=== PATIENT | male | born 1985 | race Caucasian/White ===

== ENCOUNTER 2024-07-16 07:27 | Inpatient (IN) | payer BC, SELFPAY ==
[2024-07-16] VITALS (29 sets, daily range): BP systolic 101–141; BP diastolic 57–90; PULSE 51–126; RESP 15–110; TEMP 36–38.8; O2SAT 78–97; BMI 34.4
--- NOTE | ~2024-07-16 | XR_ITS ---
EXAMINATION: XR CHEST 1 VIEW HISTORY: Hypoxia COMPARISON: Comparison is made with the prior examination dated 07/17/2024. FINDINGS: A single AP portable view of the chest performed at 8:51 AM is submitted. There are low lung volumes. There are diffuse patchy airspace opacities throughout both lungs as seen previously. There is no pleural effusion, pneumothorax, or pulmonary vascular congestion. The heart is normal in size. The bones are intact. XR/XR chest 1V IMPRESSION: Low lung volumes. Diffuse patchy airspace opacities bilaterally which may represent pulmonary edema or diffuse pneumonia. Electronically signed by: Gavino Edwards MD 07/18/2024 11:37 AM [facility]
--- NOTE | ~2024-07-16 | XR_ITS ---
EXAMINATION: XR CHEST CLINICAL INFORMATION: aspiration pneumonia COMPARISON: Chest 07/16/2024. TECHNIQUE: Frontal view of the chest was obtained. FINDINGS: The lungs are hypoexpanded with prominent bilateral increased interstitial markings similar previous exam likely pneumonitis or edema. The heart size is normal. No evidence of pleural effusion or focal consolidation. No gross bony abnormality. XR/XR chest 1V IMPRESSION: Hypoexpanded lungs with likely bilateral interstitial pneumonitis or edema. No change from 07/16/2024 Electronically signed by: Cleveland Morse MD 07/17/2024 10:46 AM EST
--- NOTE | ~2024-07-16 | CT_ITS ---
EXAMINATION: CT HEAD WITHOUT CONTRAST CLINICAL INFORMATION: OD rule out bleed, stroke COMPARISON: None available. TECHNIQUE: Contiguous axial imaging was performed from the skull base to vertex without intravenous administration of contrast. This CT examination was performed using dose optimization techniques as appropriate, variously including the following: *Automated exposure control *Adjustment of mA and/or kV according to patient size (this includes techniques or standardized protocols for targeted exams where dose is matched to indication/reason for exam; i.e. extremities or head) *Use of iterative reconstruction technique DLP: 740 mGy-cm FINDINGS: Limited by patient's motion artifact. No acute intracranial hemorrhage, mass effect, midline shift, hydrocephalus or herniation. There is a questionable asymmetric hypodensity involving the right parietal/pre and postcentral gyri. Posterior cranial fossa contents demonstrated no acute intracranial hemorrhage or mass effect. Sellar/suprasellar region demonstrated no gross masses. Bony calvarium is intact. Skull base is intact. Old traumatic deformity, nasal bones. Mucosal thickening and secretions layering in the sphenoid sinus. Retention cysts versus polyp, anterior left nasal cavity. Tympanic cavities and mastoid cells are aerated. Pneumatized petrous apices. CT/CT head/brain wo IV con IMPRESSION: No acute intracranial hemorrhage. Questionable hypodensity right parietal/pre and postcentral gyri versus artifact. If patient's symptoms persist recommend non-IV contrast MRI brain. Acute on chronic sinus disease, sphenoid sinus and anterior left nasal cavity. Electronically signed by: Eddie Cervantes MD 07/16/2024 11:24 AM [facility]
--- NOTE | ~2024-07-16 | CT_ITS ---
EXAMINATION: CT CHEST ANGIOGRAPHY WITH IV CONTRAST INDICATION: OD, Hypoxia R/O pneumonia, PE COMPARISON: Correlation is made with an AP portable view of the chest performed earlier in the day. TECHNIQUE: Helical CT scan of the chest was performed following administration of intravenous contrast (65 mL Omnipaque 350). The contrast bolus was timed to optimally opacify the pulmonary arteries. Thin sections were obtained through the pulmonary arteries. Coronal and sagittal reformatted images were generated. 3D/MIP reconstructed images are also obtained and reviewed. This CT exam was performed with one or more of the following dose reduction techniques: automated exposure control, adjustment of the mA and/or kV according to patient size, use of iterative reconstruction technique. DLP: 1247 mGy-cm CHEST: THYROID: The thyroid gland is unremarkable. PULMONARY ARTERIES: There is a large amount respiratory motion artifact. No definite intraluminal filling defects are identified within the pulmonary arteries to suggest pulmonary emboli. LUNGS: There is dense consolidation in both lower lobes, consistent with pneumonia. Additional multifocal airspace opacities are noted in both upper lobes and in the right middle lobe, consistent with pneumonia. MEDIASTINUM: There is no mediastinal lymphadenopathy. YUSRA: There is no hilar lymphadenopathy. CARDIOVASCULATURE: The heart is normal in size. There is no pericardial effusion. The thoracic aorta is normal in caliber. DEGREE OF CORONARY CALCIFICATION: none PLEURA: There is no pleural effusion. No pneumothorax. MAIN AIRWAYS: The mainstem bronchi and proximal branches are patent. AXILLA: There is no axillary lymphadenopathy. UPPER ABDOMEN: The visualized portions of the liver and spleen are unremarkable. BONES AND SOFT TISSUES: There is mild degenerative disc disease of the spine. CT/CT angio chest PE protocol IMPRESSION: Extensive consolidation in both lungs consistent with pneumonia. Follow-up is recommended. No definite evidence of pulmonary emboli. Electronically signed by: Gavino Edwards MD 07/16/2024 12:02 PM [facility]
--- NOTE | ~2024-07-16 | XR_ITS ---
EXAMINATION: XR CHEST CLINICAL INFORMATION: low o2 COMPARISON: None TECHNIQUE: Frontal view of the chest was obtained. FINDINGS: The lungs are hypoexpanded without consolidation. The heart size is normal. There are bilateral increased interstitial markings likely pneumonitis or edema. No pleural effusion suspected. Pulmonary vascularity appears normal. No gross bony abnormality. XR/XR chest 1V IMPRESSION: Hypoexpanded lungs without consolidation. Suspect interstitial pneumonitis or edema. Electronically signed by: Cleveland Morse MD 07/16/2024 08:29 AM [facility]
--- NOTE | 2024-07-16 07:57 | ED_ITS ---
HPI - Overdose General Chief Complaint: Overdose Stated Complaint: overdose, narcan given Time Seen by Provider: 07/16/24 07:56 Source: patient Mode of arrival: EMS Limitations: no limitations History of Present Illness ED Provider: Dr. Tremaine Martinez HPI Narrative: 38-year-old male who presents emergency department for evaluation of an overdose. The patient states that he was at home, he crushed up two M 30 OxyContin and snorted them. He was then found unresponsive by his family who gave a dose of intranasal Narcan. First responders also given a 2nd dose of intranasal Narcan and the patient woke up and was responsive. Patient was then transported to the emergency department by EMS. Vital signs in the emergency department revealed an elevated heart rate of 109, elevated respiratory rate of 22. Initial temperature orally was 97.5 and rectally was 96.8 consistent with hypothermia. Patient's O2 saturation was 83% on room air and on a non- rebreather his O2 saturation went up 88%. Patient complains of feeling very cold but otherwise has no complaints. The patient's is a nurse. She states that her morning alarm went off and when she woke up she found that her was not breathing well, had a dusky appearance to his skin and may have vomited. She gave him 1 dose of intranasal Narcan with some response and she states that the patient became more responsive after receiving Narcan from the 1st responders. His was not aware of the patient's substance use and they have intranasal Narcan at home because the works for [employer] and he carries intranasal Narcan in the event that a customer become unresponsive. Related Data Home Medications ?Medication ?Instructions ?Recorded ?Confirmed clonazepam 1 mg tablet 1 mg PO BEDTIME 07/16/24 07/16/24 dextroamphetamine-amphetamine 10 1 tab PO DAILY@1200 attention 07/16/24 07/16/24 mg tablet deficit hyperactivity disorder dextroamphetamine-amphetamine ER 1 cap PO DAILY 07/16/24 07/16/24 30 mg 24hr capsule,extend release venlafaxine 225 mg tablet,extended 225 mg PO DAILY 07/16/24 07/16/24 release 24 hr Allergies Allergy/AdvReac Type Severity Reaction Status Date / Time No Known Allergies Allergy Verified 07/16/24 07:47 Review of Systems 2 Review of Systems: Yes all other systems are reviewed and are negative [facility] Social History Social History Household Members: Significant Other and Children Housing: House Do you presently have visiting nurse or other home services: No Patient Tobacco Use Status: Current someday Tobacco user Tobacco use type: Smokeless Tobacco Smoked in Last 30 Days: No e-Cigarette/Vaping Use: Currently Using Use of substances other than those prescribed or required for medical reasons: Yes Substance Use Type: Crack/Cocaine, Marijuana and Opiates Substance Use Frequency: Daily Last Used Substance: Just Prior to Admission Last Used Substance Other:: Daily Marijuana use Currently Displaying Signs/Symptoms of Drug Intoxication Withdrawal: No Any prior treatment program specific to substance use: No Have you been hit, kicked, punched, or otherwise hurt by someone within the past year? If so, by whom?: No Do you feel safe in your current relationship?: Yes Is there a partner from a previous relationship who is making you feel unsafe now?: No Are you made to feel afraid or neglected: No Advance Directives: No Advance Directives Information Provided: Yes Do you have a plan to hurt others: No Plan Recently lost weight without trying: No Eating poorly because of decreased appetite: No Nutrition Risks: No Nutritional Risk Poor oral hygiene: No service: No Physical Exam 2 Vital Signs: Vital Signs: Last Vital Signs Temp 99.9 F 07/17/24 08:00 Pulse 93 07/17/24 08:00 Resp 30 H 07/17/24 08:00 BP 126/65 07/17/24 08:00 Pulse Ox 94 07/17/24 08:00 O2 Del Method High Flow Nasal C annula 07/17/24 08:00 O2 Flow Rate 40 07/17/24 08:00 FiO2 60 07/17/24 08:00 Oxygen Flow Rate 2 07/16/24 07:38 BMI result Body Mass Index 34.4 Vital signs revealed elevated heart rate, elevated respiratory rate and hypoxia Exam: General: Awake, alert, patient was shivering, answers questions appropriately appears to be indistress Head: Normocephalic, atraumatic EENT: PERRL, Lids normal, sclera normal, conjunctiva normal, nose normal , ears normal, throat without erythema or exudates Neck: Supple, no adenopathy Lung: Diminished breath sounds at the bases with diffuse rhonchi Chest: symmetric movement, nontender Heart: regular rate and rhythm, normal S1, S2 no murmurs or rubs Abdomen: soft, non-tender, nondistended, normal bowel sounds Back: no vertebral tenderness, no CVAT Extremities: no deformities, moves all extremities symmetrically Neuro: Awake, alert, oriented, normal speech, cranial nerves intact, moves all extremities symmetrically Psych: Pleasant, cooperative Medications Administered Generic Name Dose Route Start Last Admin Trade Name Miguel PRN Reason Stop Dose Admin Acetaminophen 650 mg 07/16/24 19:37 07/16/24 20:45 Acetaminophen 325 Mg Tablet PO 650 mg Q4H PRN Administration fever or mild pain Ceftriaxone Sodium 2 gm 07/16/24 10:45 07/16/24 11:02 Ceftriaxone Sodium 2 Gm Vial IVPUSH 2 gm Q24H KELY Administration Clonazepam 1 mg 07/16/24 19:37 07/16/24 20:45 Clonazepam 1 Mg Tablet PO 1 mg BEDTIME PRN Administration Anxiety Enoxaparin Sodium 40 mg 07/16/24 09:00 07/17/24 08:18 Enoxaparin Sodium 40 Mg/0.4 Ml Syringe SUBCUT 40 mg Q24H KELY Administration Pantoprazole Sodium 40 mg 07/16/24 08:55 07/17/24 06:15 Pantoprazole Sodium 40 Mg/10 Ml Vial IVPUSH 40 mg DAILY@0630 KELY Administration Discontinued Medications Generic Name Dose Route Start Last Admin Trade Name Miguel PRN Reason Stop Dose Admin Acetaminophen 650 mg 07/16/24 10:15 07/16/24 10:21 Acetaminophen Supp 650 Mg Supp.Rect ND 07/16/24 10:16 650 mg ONCE ONE Administration Fentanyl 50 mcg 07/16/24 08:49 07/16/24 09:34 Fentanyl Citrate/Pf 100 Mcg/2 Ml Vial IVPUSH 50 mcg Q10M PRN Administration RR>15 or tremors Protocol Piperacillin Sod/Tazobactam 100 mls @ 200 mls/hr 07/16/24 07:58 07/16/24 09:03 Sod 4.5 gm/ Sodium Chloride IV 07/16/24 08:27 Infused ONCE STA Infusion Sodium Chloride 1,983 mls @ 1,983 mls/hr 07/16/24 07:58 07/16/24 10:08 Ns IV 07/16/24 08:57 Infused .Q1H STA Infusion Iohexol 100 ml 07/16/24 10:48 01/06/25 10:49 Iohexol 350 Mg/Ml 100 Ml Infus..Btl IV 07/16/24 10:49 65 ml ONCE ONE Administration Medical Decision Making Medical Decision Making [facility] Narrative: 38-year-old male who presents emergency department for evaluation of an overdose. The patient states that he was at home, he crushed up to M 30 OxyContin and snorted them. The patient's is a nurse. Patient was in bed with his , noted that the patient was dusky colored or not breathing well. She also thought that he may have aspirated. his administered intranasal Narcan that they had at home with some improvement of the patient's level consciousness. The patient became fully awake after receiving intranasal Narcan from 1st responders. Physical examination revealed that the is awake, alert, shivering, appears uncomreotable and in distress. Vital signs revealed an elevated respiratory rate, elevated heart rate and hypothermia. Lung exam revealed diffuse rhonchi. 08:49 Differential diagnosis: ?Includes but is not limited to opiate overdose, polysubstance overdose, aspiration pneumonia, flash pulmonary, opiate withdrawal, edema, anemia, electrolyte abnormalities Course: 09:00 My independent interpretation patient's laboratory evaluation as follows: WBC was normal 9800 with a normal differential. Platelet count was elevated 415,000. VBG: Low pH 7.26, elevated pCO2 of 80, elevated bicarb 36-this is consistent with a respiratory acidosis. Serum bicarb was elevated at 30. Glucose elevated 187. Lactic acid was normal at 2.0. BNP below detectable limits. troponin was detectable but not elevated at 12.4. My interpretation patient's chest x-ray is as follows: Increased interstitial markings bilaterally. Patient was treated for possible aspiration pneumonia with normal saline bolus 30 cc/kilogram IV based on his ideal body weight. The patient was obese with an elevated BMI of 34.4. Patient was also given Zosyn 4.5 g IV. The patient remains hypoxic despite being on maximum high-flow oxygen and a 100% non-rebreather mask. Patient appears to be agitated in was very tremulous and I suspect that he may be withdrawing from opiates. Patient also has a very high respiratory rate which may be impairing he was ability to ventilate. Therefore, I ordered fentanyl 50 mcg IV Q 10 minutes x2. I did discuss the patient's presentation with the covering wet machine operator, Dr. Cox requested that the patient get a CT scan of the head and CT angiogram PE protocol. Patient will be admitted to the intensive care unit for further management. The patient was treated for possible aspiration pneumonia with Zosyn 4.5 g IV. 10:14 Patient's shakiness and agitation improved after getting 2 doses of fentanyl suggesting that the patient was withdrawing from narcotics. Patient was evaluated by Dr. Cox in the emergency department The patient will be sent to CT scan for his studies then transferred to the intensive care unit for further management. Admission/Observation Consideration of admission/observation: Escalation of care including admission/observation considered Consult Healthcare Provider Management of the patient was discussed with: Development Rep (Retail Sales Associate Seasonal, Dr. Cox) Lab Data MDM Lab Attestation statement: I reviewed the patient's lab results. 07/17/24 05:39 07/17/24 05:39 Labs: Lab Results 07/16/24 07/16/24 07/16/24 Range/Units 07:50 07:55 07:58 WBC 9.8 (4.8-10.8) X10*3/uL RBC 5.38 (4.60-5.80) X10*6/uL Hgb 14.7 (14.0-18.0) g/dl Hct 45.6 (42.0-52.0) % MCV 84.8 (80.0-98.0) fL MCH 27.3 (27.0-33.0) pg MCHC 32.2 (31.0-36.0) g/dl RDW 14.8 (11.0-16.0) % Plt Count 415 H (160-400) X10*3/uL MPV 8.2 L (9.4-12.4) fL Immature Gran % (Auto) 0.5 H (0.0-0.4) % Neut % (Auto) 72.5 (45-73) % Lymph % (Auto) 24.1 (20-40) % Frederick % (Auto) 1.2 L (2-11) % Eos % (Auto) 1.5 (0-4) % Baso % (Auto) 0.2 (0-2) % Lymph # (Auto) 2.4 (1.2-4.9) X10*3/uL Frederick # (Auto) 0.1 (0.1-1.2) X10*3/uL Eos # (Auto) 0.2 (0.0-0.4) X10*3/uL Baso # (Auto) 0.0 (0.0-0.2) X10*3/uL Abs Immat Gran (auto) 0.05 H (0.00-0.03) X10*3/uL Absolute Neuts (auto) 7.1 (2.0-8.3) x10*3/uL Absolute Nucleated RBC 0.000 (0.0-0.012) X10*3/uL Nucleated RBC % (auto) 0.0 (0.0-0.2) /100WBC Hold Purple Top SEE NOTE VBG pH (7.32-7.43) VBG pCO2 mmHg VBG pO2 mmHg VBG HCO3 (22-26) mmol/L VBG O2 Saturation % VBG Base Excess mmol/L Sodium 141 (135-145) mmol/L Potassium 4.4 (3.3-5.1) mmol/L Chloride 104 (96-108) mmol/L Carbon Dioxide 30 H (22-29) mmol/L Anion Gap 11 L (12-20) BUN 15 (9-16) mg/dL Creatinine 1.34 (0.5-1.4) mg/dL Estim Creat Clear Calc 85.6 Estimated GFR > 60 Random Glucose 187 H (60-115) mg/dL Lactic Acid 2.0 (0.5-2.0) mmol/L Calcium 9.3 (8.4-10.2) mg/dL Total Bilirubin 0.2 (0.0-1.0) mg/dL AST 37 (5-37) U/L ALT 28 (0-40) U/L Alkaline Phosphatase 68 (39-117) U/L Troponin I High Sens (<3.5-35.0) ng/L B-Natriuretic Peptide < 10 (<100) pg/mL Total Protein 7.4 (6.5-8.0) g/dL Albumin 4.6 (3.5-5.0) g/dL Urine Color Urine Appearance Urine pH (5.0-9.0) Ur Specific Kegley (1.005-1.025) Urine Protein (Neg-Trace) mg/dL Urine Glucose (UA) (Negative) mg/dL Urine Ketones (Negative) mg/dL Urine Blood (Negative) Urine Nitrite (Negative) Ur Leukocyte Esterase (Negative) Urine RBC (0-2) /HPF Urine WBC (0-5) /HPF Ur Squamous Epith Cells (0-2) /HPF Urine Bacteria (None Seen) Hyaline Casts (0-2) /LPF Urine Opiates Screen (Not Detect) Ur Buprenorphine Scrn (Not Detect) ng/mL Ur Oxycodone Screen (Not Detect) ng/mL Urine Methadone Screen (Not Detect) ng/mL Urine Fentanyl Screen (Not Detect) Ur Barbiturates Screen (Not Detect) Ur Phencyclidine Scrn (Not Detect) Ur Amphetamines Screen (Not Detect) U Benzodiazepines Scrn (Not Detect) Urine Cocaine Screen (Not Detect) U Marijuana (THC) Screen (Not Detect) Ethyl Alcohol < 10 mg/dL Influenza Type A (PCR) NEGATIVE (Negative) Influenza Type B (PCR) NEGATIVE (Negative) RSV RNA Qual (PCR) NEGATIVE (Negative) SARS-CoV-2 RNA (RT-PCR) NEGATIVE (Negative) 07/16/24 07/16/24 07/16/24 Range/Units 07:59 08:13 09:02 WBC (4.8-10.8) X10*3/uL RBC (4.60-5.80) X10*6/uL Hgb (14.0-18.0) g/dl Hct (42.0-52.0) % MCV (80.0-98.0) fL MCH (27.0-33.0) pg MCHC (31.0-36.0) g/dl RDW (11.0-16.0) % Plt Count (160-400) X10*3/uL MPV (9.4-12.4) fL Immature Gran % (Auto) (0.0-0.4) % Neut % (Auto) (45-73) % Lymph % (Auto) (20-40) % Frederick % (Auto) (2-11) % Eos % (Auto) (0-4) % Baso % (Auto) (0-2) % Lymph # (Auto) (1.2-4.9) X10*3/uL Frederick # (Auto) (0.1-1.2) X10*3/uL Eos # (Auto) (0.0-0.4) X10*3/uL Baso # (Auto) (0.0-0.2) X10*3/uL Abs Immat Gran (auto) (0.00-0.03) X10*3/uL Absolute Neuts (auto) (2.0-8.3) x10*3/uL Absolute Nucleated RBC (0.0-0.012) X10*3/uL Nucleated RBC % (auto) (0.0-0.2) /100WBC Hold Purple Top VBG pH 7.26 L (7.32-7.43) VBG pCO2 80 mmHg VBG pO2 23 mmHg VBG HCO3 36 H (22-26) mmol/L VBG O2 Saturation < 30.0 % VBG Base Excess 6.2 mmol/L Sodium (135-145) mmol/L Potassium (3.3-5.1) mmol/L Chloride (96-108) mmol/L Carbon Dioxide (22-29) mmol/L Anion Gap (12-20) BUN (9-16) mg/dL Creatinine (0.5-1.4) mg/dL Estim Creat Clear Calc Estimated GFR Random Glucose (60-115) mg/dL Lactic Acid (0.5-2.0) mmol/L Calcium (8.4-10.2) mg/dL Total Bilirubin (0.0-1.0) mg/dL AST (5-37) U/L ALT (0-40) U/L Alkaline Phosphatase (39-117) U/L Troponin I High Sens 12.4 (<3.5-35.0) ng/L B-Natriuretic Peptide (<100) pg/mL Total Protein (6.5-8.0) g/dL Albumin (3.5-5.0) g/dL Urine Color Yellow Urine Appearance Clear Urine pH 5.5 (5.0-9.0) Ur Specific Kegley 1.015 (1.005-1.025) Urine Protein Negative (Neg-Trace) mg/dL Urine Glucose (UA) 250 H (Negative) mg/dL Urine Ketones Negative (Negative) mg/dL Urine Blood Moderate (2+) H (Negative) Urine Nitrite Negative (Negative) Ur Leukocyte Esterase Negative (Negative) Urine RBC 0-2 (0-2) /HPF Urine WBC 0-5 (0-5) /HPF Ur Squamous Epith Cells 0-2 (0-2) /HPF Urine Bacteria None Seen (None Seen) Hyaline Casts 0-2 (0-2) /LPF Urine Opiates Screen (Not Detect) Ur Buprenorphine Scrn (Not Detect) ng/mL Ur Oxycodone Screen (Not Detect) ng/mL Urine Methadone Screen (Not Detect) ng/mL Urine Fentanyl Screen (Not Detect) Ur Barbiturates Screen (Not Detect) Ur Phencyclidine Scrn (Not Detect) Ur Amphetamines Screen (Not Detect) U Benzodiazepines Scrn (Not Detect) Urine Cocaine Screen (Not Detect) U Marijuana (THC) Screen (Not Detect) Ethyl Alcohol mg/dL Influenza Type A (PCR) (Negative) Influenza Type B (PCR) (Negative) RSV RNA Qual (PCR) (Negative) SARS-CoV-2 RNA (RT-PCR) (Negative) 07/16/24 Range/Units 09:03 WBC (4.8-10.8) X10*3/uL RBC (4.60-5.80) X10*6/uL Hgb (14.0-18.0) g/dl Hct (42.0-52.0) % MCV (80.0-98.0) fL MCH (27.0-33.0) pg MCHC (31.0-36.0) g/dl RDW (11.0-16.0) % Plt Count (160-400) X10*3/uL MPV (9.4-12.4) fL Immature Gran % (Auto) (0.0-0.4) % Neut % (Auto) (45-73) % Lymph % (Auto) (20-40) % Frederick % (Auto) (2-11) % Eos % (Auto) (0-4) % Baso % (Auto) (0-2) % Lymph # (Auto) (1.2-4.9) X10*3/uL Frederick # (Auto) (0.1-1.2) X10*3/uL Eos # (Auto) (0.0-0.4) X10*3/uL Baso # (Auto) (0.0-0.2) X10*3/uL Abs Immat Gran (auto) (0.00-0.03) X10*3/uL Absolute Neuts (auto) (2.0-8.3) x10*3/uL Absolute Nucleated RBC (0.0-0.012) X10*3/uL Nucleated RBC % (auto) (0.0-0.2) /100WBC Hold Purple Top VBG pH (7.32-7.43) VBG pCO2 mmHg VBG pO2 mmHg VBG HCO3 (22-26) mmol/L VBG O2 Saturation % VBG Base Excess mmol/L Sodium (135-145) mmol/L Potassium (3.3-5.1) mmol/L Chloride (96-108) mmol/L Carbon Dioxide (22-29) mmol/L Anion Gap (12-20) BUN (9-16) mg/dL Creatinine (0.5-1.4) mg/dL Estim Creat Clear Calc Estimated GFR Random Glucose (60-115) mg/dL Lactic Acid (0.5-2.0) mmol/L Calcium (8.4-10.2) mg/dL Total Bilirubin (0.0-1.0) mg/dL AST (5-37) U/L ALT (0-40) U/L Alkaline Phosphatase (39-117) U/L Troponin I High Sens (<3.5-35.0) ng/L B-Natriuretic Peptide (<100) pg/mL Total Protein (6.5-8.0) g/dL Albumin (3.5-5.0) g/dL Urine Color Urine Appearance Urine pH (5.0-9.0) Ur Specific Kegley (1.005-1.025) Urine Protein (Neg-Trace) mg/dL Urine Glucose (UA) (Negative) mg/dL Urine Ketones (Negative) mg/dL Urine Blood (Negative) Urine Nitrite (Negative) Ur Leukocyte Esterase (Negative) Urine RBC (0-2) /HPF Urine WBC (0-5) /HPF Ur Squamous Epith Cells (0-2) /HPF Urine Bacteria (None Seen) Hyaline Casts (0-2) /LPF Urine Opiates Screen Not Detected (Not Detect) Ur Buprenorphine Scrn Not Detected (Not Detect) ng/mL Ur Oxycodone Screen Not Detected (Not Detect) ng/mL Urine Methadone Screen Not Detected (Not Detect) ng/mL Urine Fentanyl Screen Not Detected (Not Detect) Ur Barbiturates Screen Not Detected (Not Detect) Ur Phencyclidine Scrn Not Detected (Not Detect) Ur Amphetamines Screen POSITIVE H (Not Detect) U Benzodiazepines Scrn POSITIVE H (Not Detect) Urine Cocaine Screen POSITIVE H (Not Detect) U Marijuana (THC) Screen POSITIVE H (Not Detect) Ethyl Alcohol mg/dL Influenza Type A (PCR) (Negative) Influenza Type B (PCR) (Negative) RSV RNA Qual (PCR) (Negative) SARS-CoV-2 RNA (RT-PCR) (Negative) Independent Interpretation I performed an independent interpretation of an: EKG and Plain X-Ray Interpretation: My independent interpretation patient's 12 EKG is as follows: Sinus tachycardia with a rate of 117, no ST segment elevation, no ST segment depression, no significant T-wave abnormalities, no PACs, no PVCs. Except for the tachycardia this EKG is normal. My interpretation of the patient's chest x-ray is as follows: Increased interstitial markings bilaterally consistent with interstitial edema verses aspiration pneumonia. Radiology Impression Discussion of test interpretation with radiology: I have reviewed the radiologist's reading. Radiologist Impression: XR chest 1V IMPRESSION: Hypoexpanded lungs without consolidation. Suspect interstitial pneumonitis or edema. Electronically signed by: Cleveland Morse MD 07/16/2024 08:29 AM [facility] Dictated By: Cleveland Morse MD Independent Historian Clinical information obtained from an independent historian. History obtained from or confirmed by: Spouse Critical Care Time Critical Care Time Critical Care Time: Yes Total Critical Care Time: 80 Attestation: Critical Care: The patient was critically ill with a high probability of imminent or life threatening deterioration. I spent greater than 30 minutes of discontinuous time evaluating the patient,delivering critical care at the bedside, discussing and evaluating pertinent data with consultants. Critical care time does not include time spent performing separately billable procedures or teaching. Total time spent performing critical care was 80 minutes. Discharge Plan Discharge Clinical Impression: Opiate overdose Qualifiers: Encounter type: initial encounter Injury intent: accidental or unintentional Q ualified Code(s): T40.601A - Poisoning by unspecified narcotics, accidental (unintentional), initial encounter Aspiration pneumonia Qualifiers: Aspiration pneumonia type: due to gastric secretions Laterality: unspecified laterality Hypothermia Qualifiers: Encounter type: initial encounter Qualified Code(s): T68.XXXA - Hypothermia, initial encounter Patient Disposition: Admitted As Inpatient Interventions: Admission Worksheet (ED) Last Done: 07/16/24 10:57 Discharge Date/Time: 07/16/24 10:59
--- NOTE | 2024-07-16 08:00 | PC.NURSE ---
pt is coming in from home and was found unresponsive, give 4mg of narcan by a bystander and ems gave another 4mg on seen, pt arrived to the ED pt cant maintain his oxygen level, started with nasal cannual was 4l and was sating at 83%l, put on oxy mask at 4l not maintains at this time either, decision to put the pt on high flow instead at 50l sating at 83%, respirations range from 30-40 at this time, pt increased to 100 of oxygen and maxed on the high flow as well. pt still sating low around 88-89% maxed on high flow and a non-rebreather at the same time.
--- NOTE | 2024-07-16 08:00 | ECG_ITS ---
Test Reason : OVERDOSE Blood Pressure : / mmHG Vent. Rate : 117 BPM Atrial Rate : 117 BPM P-R Int : 130 ms QRS Dur : 090 ms QT Int : 338 ms P-R-T Axes : 039 064 039 degrees QTc Int : 471 ms Sinus tachycardia Otherwise normal ECG No previous ECGs available Referred By: Tremaine Martinez Electronically Signed By:MARA ELLIOTT
[2024-07-16 08:04] LABS: MANUAL DIFF FLAG NO
[2024-07-16 08:06] LABS: Basophils Percent Auto 0.2 % (0-2); Eosinophils Absolute Auto 0.2 X10*3/uL (0.0-0.4); Eosinophils Percent Auto 1.5 % (0-4); Hematocrit 45.6 % (42.0-52.0); Hemoglobin 14.7 g/dl (14.0-18.0); Imm Gran Abs Auto 0.05 X10*3/uL (0.00-0.03); Imm Gran Pct Auto 0.5 % (0.0-0.4); Lymphocytes Absolute Auto 2.4 X10*3/uL (1.2-4.9); Lymphocytes Percent Auto 24.1 % (20-40); Mean Corpuscular HGB Conc 32.2 g/dl (31.0-36.0); Mean Corpuscular Hemoglobin 27.3 pg (27.0-33.0); Mean Corpuscular Volume 84.8 fL (80.0-98.0); Mean Platelet Volume 8.2 fL (9.4-12.4); Monocytes Absolute Auto 0.1 X10*3/uL (0.1-1.2); Monocytes Percent Auto 1.2 % (2-11); Neutrophils Absolute Auto 7.1 x10*3/uL (2.0-8.3); Neutrophils Percent Auto 72.5 % (45-73); Platelet Count 415 X10*3/uL (160-400); Red Blood Count 5.38 X10*6/uL (4.60-5.80); Red Cell Distribution Width 14.8 % (11.0-16.0); White Blood Count 9.8 X10*3/uL (4.8-10.8)
[2024-07-16 08:08] LABS: VBG Base Excess 6.2 mmol/L; VBG HCO3 36 mmol/L (22-26); VBG O2 % Saturation < 30.0 %; VBG pCO2 80 mmHg; VBG pH 7.26 (7.32-7.43); VBG pO2 23 mmHg
[2024-07-16] MEDS: 0.9 % Sodium Chloride 1,983 ML 1983 ML IV (08:08)
[2024-07-16 08:09] LABS: Venous Blood Gas Refer to POC result
[2024-07-16] MEDS: Piperacillin Sodium/Tazobactam 4.5 GM in 0.9 % Sodium Chloride 100 ML IV (08:14)
[2024-07-16 08:22] LABS: Alanine Aminotransferase 28 U/L (0-40); Albumin Level 4.6 g/dL (3.5-5.0); Alkaline Phosphatase 68 U/L (39-117); Anion Gap 11 (12-20); Bilirubin Total 0.2 mg/dL (0.0-1.0); Blood Urea Nitrogen 15 mg/dL (9-16); Calcium 9.3 mg/dL (8.4-10.2); Carbon Dioxide 30 mmol/L (22-29); Chloride 104 mmol/L (96-108); Creatinine Clr Calc Pharmacy 85.6; Estimated Glomerular Filt Rate > 60; Ethanol < 10 mg/dL; Glucose Random 187 mg/dL (60-115); Potassium 4.4 mmol/L (3.3-5.1); Sodium 141 mmol/L (135-145); Total Protein 7.4 g/dL (6.5-8.0)
--- NOTE | 2024-07-16 08:50 | PC.NURSE ---
chaudhari cath in place after two attempts for the pt to void and unsuccessful each time and bladder scan showed 600ml
[2024-07-16] MEDS: Pantoprazole Sodium 40 MG/10 ML VIAL IVPUSH (09:05)
[2024-07-16] MEDS: Enoxaparin Sodium 40 MG/0.4 ML SYRINGE SUBCUT (09:05)
[2024-07-16] MEDS: fentaNYL citrate/PF 100 MCG/2 ML VIAL 50 MCG IVPUSH ×2 (09:06→09:34)
[2024-07-16 09:08] LABS: Influenza A PCR NEGATIVE (Negative); Influenza B PCR NEGATIVE (Negative); Resp Syncy Virus RNA Qual PCR NEGATIVE (Negative); SARS COV2 PCR INHOUSE NEGATIVE (Negative)
[2024-07-16 09:13] LABS: Troponin-I High Sensitivity 12.4 ng/L (<3.5-35.0)
--- NOTE | 2024-07-16 09:13 | PC.NURSE ---
pt is off the bare hugger current tempo is 99.5 core
[2024-07-16 09:15] LABS: Appearance Urine Clear; Color Urine Yellow; Glucose Urine UA 250 mg/dL (Negative); Leukocyte Esterase Urine Negative (Negative); Nitrite Urine Negative (Negative); PH 5.5 (5.0-9.0); Specific Gravity - Urine 1.015 (1.005-1.025); UMIC TRIGGER UACC YES; Urine Blood Moderate (2+) (Negative); Urine Ketones Negative (Negative); Urine Protein Negative (Neg-Trace)
[2024-07-16 09:22] LABS: B Type Natriuretic Peptide < 10 pg/mL (<100)
[2024-07-16 09:25] LABS: Amphetamine Screen Urine POSITIVE (Not Detect); Barbiturates, Urine Not Detected (Not Detect); Benzodiazepines Screen Urine POSITIVE (Not Detect); Buprenorphine Scr Not Detected (Not Detect); Cannabinoid Screen Urine POSITIVE (Not Detect); Cocaine Screen Urine POSITIVE (Not Detect); Fentanyl, urine Not Detected (Not Detect); Methadone Screen, Urine Not Detected (Not Detect); Opiate Screen Urine Not Detected (Not Detect); Oxycodone Screen Urine Not Detected (Not Detect); Phencyclidine Screen Urine Not Detected (Not Detect)
[2024-07-16 09:30] LABS: Bacteria Urine None Seen (None Seen); Hyaline Casts Urine 0-2 /LPF (0-2); RBC Urine 0-2 /HPF (0-2); Squamous Epithelial Cell Urine 0-2 /HPF (0-2); WBC Urine 0-5 /HPF (0-5)
--- NOTE | 2024-07-16 09:40 | PC.NURSE ---
currently about 1200cc in the chaudhari cath and draining well
--- NOTE | 2024-07-16 09:47 | PC.NURSE ---
called hanna for report, awaiting a call back at this time
[2024-07-16 09:57] LABS: INTERNATIONAL NORM RATIO 0.9 (0.9-1.1)
[2024-07-16 10:00] LABS: Partial Thromboplastin Time 29.2 SEC (26.0-36.8)
[2024-07-16 10:09] LABS: Phosphorus 3.3 mg/dL (2.7-4.5)
[2024-07-16] MEDS: Acetaminophen Supp 650 MG SUPP.RECT PR (10:21)
[2024-07-16 10:33] LABS: TSH reflex Free T4 0.37 uIU/mL (0.32-4.0)
--- NOTE | 2024-07-16 10:41 | PHA.MEDREC ---
Addendum entered by Blaire Partida RPh 07/16/24 10:51: reviewed by pharmacist Original Note: Pharmacy Consult ? Medication Reconciliation Pharmacy has completed the medication reconciliation. Spoke to patient spouse at bedside to confirm med list. Spouse was able to name all of patients medication. Everything the spouse named matched claims.
[2024-07-16 10:42] LABS: Aspartate Amino Transferase 37 U/L (5-37)
[2024-07-16] MEDS: iohexoL 350 MG/ML 100 ML INFUS..BTL IV (10:49)
--- NOTE | 2024-07-16 10:59 | PM.CCHP ---
History of Present Illness Date of Service: 07/16/24 Chief Complaint: Unresponsive 38-year-old male with no significant past medical history, his home medications include only Xanax with remote history of drug abuse was apparently normal last night when he went to bed. This morning his noted that he has struggled breathing, when she turned on the light he was purple in color and severely dyspneic. She gave him a dose of intranasal Narcan and called EMS. He was brought into the ED, received another dose of Narcan after which he became very restless but a little bit more awake, later the ED physician thought he was withdrawing from opioids so received a dose of fentanyl following which he is resting comfortably. He has significant shortness of breath for which he is on 100% oxygen on high-flow along with non-rebreather so MICU was consulted for admission Review of Systems Review of Systems: Unable to obtain due to poor mental status PMFSH Social History Social History Smoked in Last 30 Days: No Use of substances other than those prescribed or required for medical reasons: Yes Substance Use Type: Opiates Advance Directives: No Advance Directives Information Provided: Yes Meds Allergies Allergy/AdvReac Type Severity Reaction Status Date / Time No Known Allergies Allergy Verified 07/16/24 07:47 Active Medications: Current Medications Ceftriaxone Sodium (Ceftriaxone Sodium 2 Gm Vial) 2 gm IVPUSH Q24H [facility] Enoxaparin Sodium (Enoxaparin Sodium 40 Mg/0.4 Ml Syringe) 40 mg SUBCUT Q24H [facility] Last Admin: 07/16/24 09:05 Dose: 40 mg Pantoprazole Sodium (Pantoprazole Sodium 40 Mg/10 Ml Vial) 40 mg IVPUSH DAILY@0630 [facility] Last Admin: 07/16/24 09:05 Dose: 40 mg Home Medications ?Medication ?Instructions ?Recorded ?Confirmed ?Last Taken ?Type clonazepam 1 mg tablet 1 mg PO BEDTIME 07/16/24 07/16/24 07/14/24 History dextroamphetamine-amphetamine 10 1 tab PO DAILY@1200 attention 07/16/24 07/16/24 07/14/24 History mg tablet deficit hyperactivity disorder dextroamphetamine-amphetamine ER 1 cap PO DAILY 07/16/24 07/16/24 07/14/24 History 30 mg 24hr capsule,extend release venlafaxine 225 mg tablet,extended 225 mg PO DAILY 0107/16/24 07/15/24 History release 24 hr Physical Exam Vital Signs: Vital Signs: Last Vital Signs Temp 101.8 F H 07/16/24 10:10 Pulse 126 H 07/16/24 10:10 Resp 38 H 07/16/24 10:10 BP 126/70 07/16/24 10:10 Pulse Ox 90 L 07/16/24 10:10 O2 Del Method High Flow Nasal C annula, Non-Rebrea ther Mask 07/16/24 10:10 O2 Flow Rate 60 07/16/24 10:10 Oxygen Flow Rate 2 07/16/24 07:38 BMI result Body Mass Index 34.4 General: Young white male lying in the bed unresponsive, dyspneic Nutritional Appearance: well nourished and overweight Eyes: appearance normal, both eyes and all related structures; Alignment and Position: alignment normal and position normal Neck: No lymphadenopathy, no thyromegaly Resp: bilateral air entry equal, crackles heard bilaterally Cardio: Regular rate, regular rhythm; Heart sounds: S1 normal heart sound present and S2 normal heart sound present GI: soft, nontender, no guarding, no hepatosplenomegaly : bladder normal to inspection, bladder normal to palpation, no renal angle tenderness Skin: no rashes or lesions noted and elasticity normal Neuro: Drowsy, not following commands but moves all extremities Results Labs 07/16/24 07:50 07/16/24 07:50 Labs: Laboratory Results - last 24 hr 07/16/24 07/16/24 07/16/24 07:50 07:55 07:58 MCV 84.8 MCH 27.3 MCHC 32.2 RDW 14.8 Plt Count 415 H MPV 8.2 L Immature Gran % (Auto) 0.5 H Neut % (Auto) 72.5 Lymph % (Auto) 24.1 [place] % (Auto) 1.2 L Eos % (Auto) 1.5 Baso % (Auto) 0.2 Lymph # (Auto) 2.4 [place] # (Auto) 0.1 Eos # (Auto) 0.2 Baso # (Auto) 0.0 Abs Immat Gran (auto) 0.05 H Absolute Neuts (auto) 7.1 Absolute Nucleated RBC 0.000 Nucleated RBC % (auto) 0.0 Hold Purple Top SEE NOTE PT INR APTT VBG pH VBG pCO2 VBG pO2 VBG HCO3 VBG O2 Saturation VBG Base Excess Anion Gap 11 L Estim Creat Clear Calc 85.6 Estimated GFR > 60 Random Glucose 187 H Lactic Acid 2.0 Calcium 9.3 Phosphorus Total Bilirubin 0.2 AST 37 ALT 28 Alkaline Phosphatase 68 Troponin I High Sens B-Natriuretic Peptide < 10 Total Protein 7.4 Albumin 4.6 TSH Urine Color Urine Appearance Urine pH Ur Specific [place] Urine Protein Urine Glucose (UA) Urine Ketones Urine Blood Urine Nitrite Ur Leukocyte Esterase Urine RBC Urine WBC Ur Squamous Epith Cells Urine Bacteria Hyaline Casts Urine Opiates Screen Ur Buprenorphine Scrn Ur Oxycodone Screen Urine Methadone Screen Urine Fentanyl Screen Ur Barbiturates Screen Ur Phencyclidine Scrn Ur Amphetamines Screen U Benzodiazepines Scrn Urine Cocaine Screen U Marijuana (THC) Screen Ethyl Alcohol < 10 Influenza Type A (PCR) NEGATIVE Influenza Type B (PCR) NEGATIVE RSV RNA Qual (PCR) NEGATIVE SARS-CoV-2 RNA (RT-PCR) NEGATIVE 07/16/24 07/16/24 07/16/24 07:59 08:13 09:02 MCV MCH MCHC RDW Plt Count MPV Immature Gran % (Auto) Neut % (Auto) Lymph % (Auto) [place] % (Auto) Eos % (Auto) Baso % (Auto) Lymph # (Auto) [place] # (Auto) Eos # (Auto) Baso # (Auto) Abs Immat Gran (auto) Absolute Neuts (auto) Absolute Nucleated RBC Nucleated RBC % (auto) Hold Purple Top PT INR APTT VBG pH 7.26 L VBG pCO2 80 VBG pO2 23 VBG HCO3 36 H VBG O2 Saturation < 30.0 VBG Base Excess 6.2 Anion Gap Estim Creat Clear Calc Estimated GFR Random Glucose Lactic Acid Calcium Phosphorus Total Bilirubin AST ALT Alkaline Phosphatase Troponin I High Sens 12.4 B-Natriuretic Peptide Total Protein Albumin TSH Urine Color Yellow Urine Appearance Clear Urine pH 5.5 Ur Specific [place] 1.015 Urine Protein Negative Urine Glucose (UA) 250 H Urine Ketones Negative Urine Blood Moderate (2+) H Urine Nitrite Negative Ur Leukocyte Esterase Negative Urine RBC 0-2 Urine WBC 0-5 Ur Squamous Epith Cells 0-2 Urine Bacteria None Seen Hyaline Casts 0-2 Urine Opiates Screen Ur Buprenorphine Scrn Ur Oxycodone Screen Urine Methadone Screen Urine Fentanyl Screen Ur Barbiturates Screen Ur Phencyclidine Scrn Ur Amphetamines Screen U Benzodiazepines Scrn Urine Cocaine Screen U Marijuana (THC) Screen Ethyl Alcohol Influenza Type A (PCR) Influenza Type B (PCR) RSV RNA Qual (PCR) SARS-CoV-2 RNA (RT-PCR) 07/16/24 07/16/24 07/16/24 09:03 09:44 09:45 MCV MCH MCHC RDW Plt Count MPV Immature Gran % (Auto) Neut % (Auto) Lymph % (Auto) [place] % (Auto) Eos % (Auto) Baso % (Auto) Lymph # (Auto) [place] # (Auto) Eos # (Auto) Baso # (Auto) Abs Immat Gran (auto) Absolute Neuts (auto) Absolute Nucleated RBC Nucleated RBC % (auto) Hold Purple Top PT 11.0 INR 0.9 APTT 29.2 VBG pH VBG pCO2 VBG pO2 VBG HCO3 VBG O2 Saturation VBG Base Excess Anion Gap Estim Creat Clear Calc Estimated GFR Random Glucose Lactic Acid Calcium Phosphorus 3.3 Total Bilirubin AST ALT Alkaline Phosphatase Troponin I High Sens B-Natriuretic Peptide Total Protein Albumin TSH 0.37 Urine Color Urine Appearance Urine pH Ur Specific [place] Urine Protein Urine Glucose (UA) Urine Ketones Urine Blood Urine Nitrite Ur Leukocyte Esterase Urine RBC Urine WBC Ur Squamous Epith Cells Urine Bacteria Hyaline Casts Urine Opiates Screen Not Detected Ur Buprenorphine Scrn Not Detected Ur Oxycodone Screen Not Detected Urine Methadone Screen Not Detected Urine Fentanyl Screen Not Detected Ur Barbiturates Screen Not Detected Ur Phencyclidine Scrn Not Detected Ur Amphetamines Screen POSITIVE H U Benzodiazepines Scrn POSITIVE H Urine Cocaine Screen POSITIVE H U Marijuana (THC) Screen POSITIVE H Ethyl Alcohol Influenza Type A (PCR) Influenza Type B (PCR) RSV RNA Qual (PCR) SARS-CoV-2 RNA (RT-PCR) Imaging Radiologist's Impressions: Impressions Chest X-Ray 07/16/24 07:50 IMPRESSION: Hypoexpanded lungs without consolidation. Suspect interstitial pneumonitis or edema. Electronically signed by: Cleveland Morse MD 07/16/2024 08:29 AM [facility] Assessment and Plan (1) Aspiration pneumonia: Qualifiers: Aspiration pneumonia type: due to gastric secretions Laterality: unspecified laterality Status: Acute (2) Acute encephalopathy: Status: Acute (3) Acute hypoxemic respiratory failure: Status: Acute (4) Opiate overdose: Qualifiers: Encounter type: initial encounter Injury intent: accidental or unintentional Qualified Code(s): T40.601A - Poisoning by unspecified narcotics, accidental (unintentional), initial encounter Status: Acute Plan Acute encephalopathy possibly due to toxic encephalopathy from drug overdose UDS positive for meth amphetamines, benzos, cocaine and marijuana CT of the head done, reports pending Close neurological status monitoring in the ICU every hour Acute hypoxemic respiratory failure due to aspiration pneumonia Currently on 100% oxygen on high-flow and non-rebreather CTA of the chest done to rule out any other etiologies On ceftriaxone for aspiration pneumonia GI: We will keep him NPO due to high-risk for aspiration Prophylaxis: Lovenox, pantoprazole Total time managing care of this patient today: 40 minutes.
[2024-07-16] MEDS: cefTRIAXone sodium 2 GM VIAL IVPUSH (11:02)
[2024-07-16 11:50] LABS: ABG Base Excess 0.3 mmol/L; ABG HCO3 25 mmol/L (22-26); ABG pCO2 40 mmHg (32-45); ABG pH 7.39 (7.35-7.45); ABG pO2 92 mmHg (83-108)
--- NOTE | 2024-07-16 14:16 | MHC.CM.PN ---
CM assessment limited by pt's lethargy: some information obtained from pt's spouse and EMR. Pt resides w/spouse/family and has no DME or services. He will need CARE team assessment when medically stable for polysubstance use. Spouse can transport. CM to reassess and follow for finalization of d/c plan needs. PCP Dr. Hinojosa
[2024-07-16] MEDS: clonazePAM 1 MG TABLET PO (20:45)
[2024-07-16] MEDS: Acetaminophen 325 MG TABLET 650 MG PO (20:45)
[2024-07-17] VITALS (20 sets, daily range): BP systolic 106–139; BP diastolic 58–80; PULSE 68–104; RESP 18–38; TEMP 36.3–38; O2SAT 92–98
[2024-07-17] MEDS: Pantoprazole Sodium 40 MG/10 ML VIAL IVPUSH (06:15)
[2024-07-17 06:19] LABS: Hematocrit 43.5 % (42.0-52.0); Hemoglobin 14.2 g/dl (14.0-18.0); Mean Corpuscular HGB Conc 32.6 g/dl (31.0-36.0); Mean Corpuscular Volume 82.9 fL (80.0-98.0); Mean Platelet Volume 8.7 fL (9.4-12.4); Platelet Count 341 X10*3/uL (160-400); Red Blood Count 5.25 X10*6/uL (4.60-5.80); Red Cell Distribution Width 15.1 % (11.0-16.0); White Blood Count 11.8 X10*3/uL (4.8-10.8)
[2024-07-17 06:25] LABS: Magnesium 1.6 mg/dL (1.6-2.6)
[2024-07-17 06:26] LABS: Alanine Aminotransferase 22 U/L (0-40); Albumin Level 3.8 g/dL (3.5-5.0); Alkaline Phosphatase 41 U/L (39-117); Anion Gap 13 (12-20); Aspartate Amino Transferase 28 U/L (5-37); Bilirubin Total 0.6 mg/dL (0.0-1.0); Blood Urea Nitrogen 10 mg/dL (9-16); Calcium 8.6 mg/dL (8.4-10.2); Carbon Dioxide 23 mmol/L (22-29); Chloride 108 mmol/L (96-108); Estimated Glomerular Filt Rate > 60; Glucose Random 100 mg/dL (60-115); Potassium 3.6 mmol/L (3.3-5.1); Sodium 140 mmol/L (135-145); Total Protein 6.5 g/dL (6.5-8.0)
[2024-07-17 07:03] LABS: Band Neutrophils Percent 26 % (3-5); Lymphocytes Percent Manual 17 % (20-40); Metamyelocytes Absolute 0.2 X10*3/uL; Metamyelocytes Percent 2 %; Myelocytes Absolute 0.1 X10*/uL; Myelocytes Percent 1 %; Neutrophils Absolute Manual 9.4 X10*3/uL (2.0-8.3); Neutrophils Percent Manual 54 % (45-73)
[2024-07-17 07:04] LABS: Dohle Bodies PRESENT
[2024-07-17 07:05] LABS: Toxic Vacuolation PRESENT
[2024-07-17 07:06] LABS: Platelet Estimate NORMAL (NORMAL); Platelet Morphology Comment NORMAL; RBC Morphology NORMAL
[2024-07-17] MEDS: Enoxaparin Sodium 40 MG/0.4 ML SYRINGE SUBCUT (08:18)
--- NOTE | 2024-07-17 08:51 | P.PNCC_ITS ---
Subjective Subjective Date of Service: 07/17/24 Critical Care Time (minutes): 35 Comment: No new events overnight, improving oxygen requirements Mental status slowly improving Physical Exam 2 Vital Signs: Vital Signs: Last Vital Signs Temp 99.9 F 07/17/24 08:00 Pulse 93 07/17/24 08:00 Resp 30 H 07/17/24 08:00 BP 126/65 07/17/24 08:00 Pulse Ox 94 07/17/24 08:00 O2 Del Method High Flow Nasal C annula 07/17/24 08:00 O2 Flow Rate 40 07/17/24 08:00 FiO2 60 07/17/24 08:00 Oxygen Flow Rate 2 07/16/24 07:38 BMI result Body Mass Index 34.4 General: Not in acute distress, drowsy but arousable Nutritional Appearance: well nourished and overweight Eyes: appearance normal, both eyes and all related structures; Alignment and Position: alignment normal and position normal Neck: No lymphadenopathy, no thyromegaly Resp: bilateral air entry equal, occasional added sounds present Cardio: Regular rate, regular rhythm; Heart sounds: S1 normal heart sound present and S2 normal heart sound present GI: soft, nontender, no guarding, no hepatosplenomegaly : bladder normal to inspection, bladder normal to palpation, no renal angle tenderness Skin: no rashes or lesions noted and elasticity normal Neuro: No focal deficits, moves all extremities Objective Data Labs 07/17/24 05:39 07/17/24 05:39 Labs: Laboratory Results - last 24 hr 07/16/24 07/16/24 07/16/24 07:50 07:58 08:13 WBC RBC Hgb Hct MCV MCH MCHC RDW Plt Count MPV Immature Gran % (Auto) Neut % (Auto) Lymph % (Auto) [place] % (Auto) Eos % (Auto) Baso % (Auto) Lymph # (Auto) [place] # (Auto) Eos # (Auto) Baso # (Auto) Abs Immat Gran (auto) Absolute Neuts (auto) Absolute Nucleated RBC Nucleated RBC % (auto) Neutrophils % (Manual) Band Neutrophils % Lymphocytes % (Manual) Metamyelocytes % Myelocytes % Abs Neuts (Manual) Lymphocytes # (Manual) Metamyelocytes # Myelocytes # Toxic Vacuolation Dohle Bodies Platelet Estimate Plt Morphology Comment RBC Morphology PT INR APTT O2 Saturation ABG pH at Pt Temp ABG pCO2 at Pt Temp ABG pO2 at Pt Temp ABG HCO3 ABG Base Excess (Actual) Sodium Potassium Chloride Carbon Dioxide Anion Gap BUN Creatinine Estim Creat Clear Calc Estimated GFR Random Glucose Calcium Phosphorus Magnesium Total Bilirubin AST 37 ALT Alkaline Phosphatase Troponin I High Sens 12.4 B-Natriuretic Peptide < 10 Total Protein Albumin TSH Urine Color Urine Appearance Urine pH Ur Specific [place] Urine Protein Urine Glucose (UA) Urine Ketones Urine Blood Urine Nitrite Ur Leukocyte Esterase Urine RBC Urine WBC Ur Squamous Epith Cells Urine Bacteria Hyaline Casts Urine Opiates Screen Ur Buprenorphine Scrn Ur Oxycodone Screen Urine Methadone Screen Urine Fentanyl Screen Ur Barbiturates Screen Ur Phencyclidine Scrn Ur Amphetamines Screen U Benzodiazepines Scrn Urine Cocaine Screen U Marijuana (THC) Screen Influenza Type A (PCR) NEGATIVE Influenza Type B (PCR) NEGATIVE RSV RNA Qual (PCR) NEGATIVE SARS-CoV-2 RNA (RT-PCR) NEGATIVE 07/16/24 07/16/24 07/16/24 09:02 09:03 09:44 WBC RBC Hgb Hct MCV MCH MCHC RDW Plt Count MPV Immature Gran % (Auto) Neut % (Auto) Lymph % (Auto) [place] % (Auto) Eos % (Auto) Baso % (Auto) Lymph # (Auto) [place] # (Auto) Eos # (Auto) Baso # (Auto) Abs Immat Gran (auto) Absolute Neuts (auto) Absolute Nucleated RBC Nucleated RBC % (auto) Neutrophils % (Manual) Band Neutrophils % Lymphocytes % (Manual) Metamyelocytes % Myelocytes % Abs Neuts (Manual) Lymphocytes # (Manual) Metamyelocytes # Myelocytes # Toxic Vacuolation Dohle Bodies Platelet Estimate Plt Morphology Comment RBC Morphology PT INR APTT O2 Saturation ABG pH at Pt Temp ABG pCO2 at Pt Temp ABG pO2 at Pt Temp ABG HCO3 ABG Base Excess (Actual) Sodium Potassium Chloride Carbon Dioxide Anion Gap BUN Creatinine Estim Creat Clear Calc Estimated GFR Random Glucose Calcium Phosphorus Magnesium Total Bilirubin AST ALT Alkaline Phosphatase Troponin I High Sens B-Natriuretic Peptide Total Protein Albumin TSH 0.37 Urine Color Yellow Urine Appearance Clear Urine pH 5.5 Ur Specific [place] 1.015 Urine Protein Negative Urine Glucose (UA) 250 H Urine Ketones Negative Urine Blood Moderate (2+) H Urine Nitrite Negative Ur Leukocyte Esterase Negative Urine RBC 0-2 Urine WBC 0-5 Ur Squamous Epith Cells 0-2 Urine Bacteria None Seen Hyaline Casts 0-2 Urine Opiates Screen Not Detected Ur Buprenorphine Scrn Not Detected Ur Oxycodone Screen Not Detected Urine Methadone Screen Not Detected Urine Fentanyl Screen Not Detected Ur Barbiturates Screen Not Detected Ur Phencyclidine Scrn Not Detected Ur Amphetamines Screen POSITIVE H U Benzodiazepines Scrn POSITIVE H Urine Cocaine Screen POSITIVE H U Marijuana (THC) Screen POSITIVE H Influenza Type A (PCR) Influenza Type B (PCR) RSV RNA Qual (PCR) SARS-CoV-2 RNA (RT-PCR) 07/16/24 07/16/24 07/17/24 09:45 11:39 05:39 WBC 11.8 H RBC 5.25 Hgb 14.2 Hct 43.5 MCV 82.9 MCH 27.0 MCHC 32.6 RDW 15.1 Plt Count 341 MPV 8.7 L Immature Gran % (Auto) Cancelled Neut % (Auto) Cancelled Lymph % (Auto) Cancelled [place] % (Auto) Cancelled Eos % (Auto) Cancelled Baso % (Auto) Cancelled Lymph # (Auto) Cancelled [place] # (Auto) Cancelled Eos # (Auto) Cancelled Baso # (Auto) Cancelled Abs Immat Gran (auto) Cancelled Absolute Neuts (auto) Cancelled Absolute Nucleated RBC 0.000 Nucleated RBC % (auto) 0.0 Neutrophils % (Manual) 54 Band Neutrophils % 26 H Lymphocytes % (Manual) 17 L Metamyelocytes % 2 Myelocytes % 1 Abs Neuts (Manual) 9.4 H Lymphocytes # (Manual) 2.0 Metamyelocytes # 0.2 Myelocytes # 0.1 Toxic Vacuolation PRESENT Dohle Bodies PRESENT Platelet Estimate NORMAL Plt Morphology Comment NORMAL RBC Morphology NORMAL PT 11.0 INR 0.9 APTT 29.2 O2 Saturation 99.0 ABG pH at Pt Temp 7.39 ABG pCO2 at Pt Temp 40 ABG pO2 at Pt Temp 92 ABG HCO3 25 ABG Base Excess (Actual) 0.3 Sodium 140 Potassium 3.6 Chloride 108 Carbon Dioxide 23 Anion Gap 13 BUN 10 Creatinine 0.89 Estim Creat Clear Calc 129.0 Estimated GFR > 60 Random Glucose 100 Calcium 8.6 D Phosphorus 3.3 Magnesium 1.6 Total Bilirubin 0.6 AST 28 ALT 22 Alkaline Phosphatase 41 Troponin I High Sens B-Natriuretic Peptide Total Protein 6.5 Albumin 3.8 TSH Urine Color Urine Appearance Urine pH Ur Specific [place] Urine Protein Urine Glucose (UA) Urine Ketones Urine Blood Urine Nitrite Ur Leukocyte Esterase Urine RBC Urine WBC Ur Squamous Epith Cells Urine Bacteria Hyaline Casts Urine Opiates Screen Ur Buprenorphine Scrn Ur Oxycodone Screen Urine Methadone Screen Urine Fentanyl Screen Ur Barbiturates Screen Ur Phencyclidine Scrn Ur Amphetamines Screen U Benzodiazepines Scrn Urine Cocaine Screen U Marijuana (THC) Screen Influenza Type A (PCR) Influenza Type B (PCR) RSV RNA Qual (PCR) SARS-CoV-2 RNA (RT-PCR) Progress Note: A&P Assessment and plan (1) Acute encephalopathy: Status: Acute (2) Aspiration pneumonia: Status: Acute (3) Acute hypoxemic respiratory failure: Status: Acute (4) Hypothermia: Status: Acute (5) Opiate overdose: Status: Acute Plan Acute encephalopathy possibly due to toxic encephalopathy from drug overdose UDS positive for meth amphetamines, benzos, cocaine and marijuana According to his he is on Adderall that is why his UDS is positive for amphetamines, he is on Xanax so UDS is positive for BZD CT of the head done, reports pending Close neurological status monitoring in the ICU every hour Acute hypoxemic respiratory failure due to aspiration pneumonia Improving oxygen requirements, FiO2 is down to 50% at 30 L CTA of the chest done to rule out any other etiologies On ceftriaxone for aspiration pneumonia GI: Diet as tolerated Prophylaxis: Lovenox, pantoprazole We will transfer him to floor today Quality Stroke Does the patient have a stroke diagnosis?: No VTE Prior VTE?: No VTE Risk Level:: Medical - low VTE Device Contraindication: N/A - Device Ordered VTE Drug Contraindication: N/A - Med Ordered
[2024-07-17] MEDS: cefTRIAXone sodium 2 GM VIAL IVPUSH (09:43)
--- NOTE | 2024-07-17 09:57 | MHC.CM.PN ---
Pt making clinical gains: remains on high flow, mental status improving. D/C plan is for a return to home w/family : CARE team consult when medically stable. CM to follow
[2024-07-17] MEDS: Venlafaxine HCl ER 75 MG CAP.ER.24H 225 MG PO (11:42)
[2024-07-17 12:02] LABS: MRSA Nasal PCR NEGATIVE (Negative); SA Nasal PCR POSITIVE (Negative)
[2024-07-17] MEDS: clonazePAM 1 MG TABLET PO ×2 (12:58→22:15)
[2024-07-17 13:56] LABS: ABG Refer to POC result
[2024-07-18 04:00] VITALS: BP 124/72; PULSE 75; RESP 18; TEMP 36.5; O2SAT 96
[2024-07-18] MEDS: Pantoprazole Sodium 40 MG/10 ML VIAL IVPUSH (05:32)
[2024-07-18 07:52] VITALS: BP 119/79; PULSE 63; RESP 17; TEMP 36.2; O2SAT 97
[2024-07-18] MEDS: Enoxaparin Sodium 40 MG/0.4 ML SYRINGE SUBCUT (08:47)
[2024-07-18] MEDS: Venlafaxine HCl ER 75 MG CAP.ER.24H 225 MG PO (08:47)
[2024-07-18] MEDS: Azithromycin 500 MG in 0.9 % Sodium Chloride 250 ML 125 MG IV (08:58)
[2024-07-18] MEDS: Dextroamphetamine/Amphetamine XR 10 MG CAP.ER.24H 30 MG PO (10:27)
[2024-07-18] MEDS: methylPREDNISolone Sod Succ 40 MG/ML VIAL IVPUSH ×2 (10:28→21:41)
[2024-07-18 11:03] LABS: Alanine Aminotransferase 16 U/L (0-40); Albumin Level 3.8 g/dL (3.5-5.0); Alkaline Phosphatase 49 U/L (39-117); Anion Gap 12 (12-20); Aspartate Amino Transferase 19 U/L (5-37); Bilirubin Total 0.4 mg/dL (0.0-1.0); Blood Urea Nitrogen 15 mg/dL (9-16); Calcium 9.4 mg/dL (8.4-10.2); Carbon Dioxide 23 mmol/L (22-29); Chloride 108 mmol/L (96-108); Estimated Glomerular Filt Rate > 60; Glucose Random 131 mg/dL (60-115); Potassium 3.8 mmol/L (3.3-5.1); Sodium 139 mmol/L (135-145); Total Protein 6.9 g/dL (6.5-8.0)
[2024-07-18] MEDS: cefTRIAXone sodium 2 GM VIAL IVPUSH (11:04)
--- NOTE | 2024-07-18 11:43 | MHC.CM.PN ---
Per MD rounds patient not medically cleared for dc. CM will continue to follow.
--- NOTE | 2024-07-18 11:43 | MHC.RECOVRN ---
T/W met with pt following request for consult r/t poly substance use. Pt very guarded during meeting and present. already in contact with [facility] and considering placement. Pt admits to abusing uppers and downers since he was 12. He did not disclose any other substance use. He did state that he used these substances to get him through the day Education provided to and pt. on the neurobiology of addiction and the services available along the continuum of care, for recovery. Also discussed risk and harm reduction with pt. and . This process description writer gave pt my contact information for any questions. ACS available as needed.
[2024-07-18] MEDS: clonazePAM 1 MG TABLET PO (12:12)
[2024-07-18] MEDS: Amphetamine Mixed Salts 10 MG TABLET PO (12:12)
--- NOTE | 2024-07-18 12:34 | HO.PM.IMPN ---
Subjective Subjective Date of Service: 07/18/24 Interval History: The patient was seen and evaluated this morning requiring O2 supplement of 6L no reported fever or chills no other events Review of Systems Review of Systems: Yes all other systems are reviewed and are negative Physical Exam Vital Signs: Vital Signs: Last Vital Signs Temp 97.2 F 07/18/24 07:52 Pulse 63 07/18/24 07:52 Resp 17 07/18/24 07:52 BP 119/79 07/18/24 07:52 Pulse Ox 97 07/18/24 07:52 O2 Del Method Nasal Cannula 07/18/24 07:52 O2 Flow Rate 6 07/18/24 07:52 FiO2 60 07/17/24 11:00 Oxygen Flow Rate 2 07/16/24 07:38 BMI result Body Mass Index 34.4 Const: Other: Constitutional : Awake, interactive, not in distress Neck : Normal inspection, Supple Cardiovascular : RRR, no JVP, no lower extremity edema Respiratory : decreased bilateral air entry, basal fine crackles, scattered exp. wheezes Gastrointestinal: soft, lax, Normal bowel sounds, Non tender Skin : Warm, Dry Neurological : Alert & oriented x3, No focal deficit Objective Data Active Medications Acetaminophen (Acetaminophen 325 Mg Tablet) 650 mg PO Q4H PRN PRN Reason: fever or mild pain Last Admin: 07/16/24 20:45 Dose: 650 mg Documented By: ERWIN Amphetamine/Dextroamphetamine (Amphetamine Mixed Salts 10 Mg Tablet) 10 mg PO DAILY@1200 [facility] Last Admin: 07/18/24 12:12 Dose: 10 mg Documented By: HOSEA Amphetamine/Dextroamphetamine (Dextroamphetamine/Amphetamine Xr 10 Mg Cap.Er.24h) 30 mg PO DAILY [facility] Last Admin: 07/18/24 10:27 Dose: 30 mg Documented By: HOSEA Ceftriaxone Sodium (Ceftriaxone Sodium 2 Gm Vial) 2 gm IVPUSH Q24H [facility] Last Admin: 07/18/24 11:04 Dose: 2 gm Documented By: HOSEA Clonazepam (Clonazepam 1 Mg Tablet) 1 mg PO TID PRN PRN Reason: withdrawal Last Admin: 07/18/24 12:12 Dose: 1 mg Documented By: HOSEA Enoxaparin Sodium (Enoxaparin Sodium 40 Mg/0.4 Ml Syringe) 40 mg SUBCUT Q24H [facility] Last Admin: 07/18/24 08:47 Dose: 40 mg Documented By: HOSEA Azithromycin 500 mg/ Sodium (Chloride) 250 mls @ 125 mls/hr IV Q24H [facility] Last Infusion: 07/18/24 11:15 Dose: Infused Documented By: HOSEA Methylprednisolone Sodium Succinate (Methylprednisolone Sod Succ 40 Mg/Ml Vial) 40 mg IVPUSH Q12H [facility] Last Admin: 07/18/24 10:28 Dose: 40 mg Documented By: HOSEA Pantoprazole Sodium (Pantoprazole Sodium 40 Mg/10 Ml Vial) 40 mg IVPUSH DAILY@0630 [facility] Last Admin: 07/18/24 05:32 Dose: 40 mg Documented By: LIDIA Venlafaxine HCl (Venlafaxine Hcl Er 75 Mg Cap.Er.24h) 225 mg PO DAILY [facility] Last Admin: 07/18/24 08:47 Dose: 225 mg Documented By: HOSEA Labs 07/17/24 05:39 07/18/24 10:34 Labs: Laboratory Results - last 24 hr 07/18/24 10:34 Anion Gap 12 Estim Creat Clear Calc 140.0 Estimated GFR > 60 Random Glucose 131 H Calcium 9.4 D Total Bilirubin 0.4 AST 19 ALT 16 Alkaline Phosphatase 49 Total Protein 6.9 Albumin 3.8 Microbiology Microbiology Results: Microbiology 07/16/24 08:13 Blood Culture - Preliminary Blood - Venous No growth after 48 hours. 07/16/24 07:55 Blood Culture - Preliminary Blood - Venous No growth after 48 hours. Assessment and Plan (1) Acute hypoxemic respiratory failure: Status: Acute (2) Acute encephalopathy: Status: Acute (3) Aspiration pneumonia: Status: Acute Plan 38-year-old male with remote history of drug abuse brought to ED for struggle breathing and severely dyspneic. altered as result of overdose? requiring high flow O2 in ICU. Acute toxic metabolic encephalopathy due to drugs and aspiration UDS positive for meth amphetamines, benzos, cocaine and marijuana CT of the head with no acute abnormalities improved back to baseline addiction team following restart Adderal while inpatient Acute hypoxemic respiratory failure due to aspiration pneumonia CTA of the chest showing infiltrates On ceftriaxone and Azithromycin for aspiration pneumonia Steroids and nebs added for likely pneumonitis wean O2 down as tolerated DVT PPx Lovenox The patient will need overnight stay for treatment of hypoxemia pending weaning down O2 Quality Stroke Does the patient have a stroke diagnosis?: No VTE Prior VTE?: No VTE Risk Level:: Medical - low VTE Device Contraindication: N/A - Device Ordered VTE Drug Contraindication: N/A - Med Ordered
[2024-07-18] MEDS: Furosemide 20 MG/2 ML VIAL IVPUSH (12:45)
--- NOTE | 2024-07-18 13:21 | PC.NURSE ---
Patient in room with and turning off bed alarm. Aide found patient in the shower alone not long after Nurse reminded that patient needs to ring for help in transferring to bathroom.
[2024-07-18 13:30] VITALS: O2SAT 95
[2024-07-18] MEDS: Albuterol/Iprat 2.5/0.5MG 3 ML AMPUL.NEB INHALE (15:22)
[2024-07-18 15:26] VITALS: PULSE 75; RESP 16; O2SAT 97
[2024-07-18 16:00] VITALS: BP 122/72; PULSE 100; RESP 18; TEMP 37.3; O2SAT 93
[2024-07-18 19:24] VITALS: BP 140/84; PULSE 100; RESP 18; TEMP 36.2; O2SAT 98
[2024-07-18] MEDS: Melatonin 3 MG TABLET 6 MG PO (21:41)
[2024-07-19 03:36] VITALS: BP 110/65; PULSE 64; RESP 16; TEMP 36.3; O2SAT 96
[2024-07-19] MEDS: Pantoprazole Sodium 40 MG/10 ML VIAL IVPUSH (05:47)
[2024-07-19] MEDS: clonazePAM 1 MG TABLET PO ×2 (05:57→11:27)
[2024-07-19 06:57] LABS: MANUAL DIFF FLAG NO
[2024-07-19 07:00] LABS: Basophils Percent Auto 0.2 % (0-2); Hematocrit 44.5 % (42.0-52.0); Hemoglobin 14.2 g/dl (14.0-18.0); Imm Gran Abs Auto 0.18 X10*3/uL (0.00-0.03); Imm Gran Pct Auto 1.3 % (0.0-0.4); Lymphocytes Percent Auto 7.4 % (20-40); Mean Corpuscular HGB Conc 31.9 g/dl (31.0-36.0); Mean Corpuscular Hemoglobin 26.8 pg (27.0-33.0); Mean Corpuscular Volume 84.1 fL (80.0-98.0); Mean Platelet Volume 9.1 fL (9.4-12.4); Monocytes Absolute Auto 0.3 X10*3/uL (0.1-1.2); Monocytes Percent Auto 2.4 % (2-11); Neutrophils Absolute Auto 12.4 x10*3/uL (2.0-8.3); Neutrophils Percent Auto 88.7 % (45-73); Platelet Count 444 X10*3/uL (160-400); Red Blood Count 5.29 X10*6/uL (4.60-5.80); Red Cell Distribution Width 14.9 % (11.0-16.0)
[2024-07-19 07:22] LABS: Alanine Aminotransferase 20 U/L (0-40); Alkaline Phosphatase 68 U/L (39-117); Anion Gap 14 (12-20); Aspartate Amino Transferase 17 U/L (5-37); Bilirubin Total 0.3 mg/dL (0.0-1.0); Blood Urea Nitrogen 18 mg/dL (9-16); Calcium 9.4 mg/dL (8.4-10.2); Carbon Dioxide 23 mmol/L (22-29); Chloride 106 mmol/L (96-108); Creatinine Clr Calc Pharmacy 143.5; Estimated Glomerular Filt Rate > 60; Glucose Random 120 mg/dL (60-115); Potassium 4.3 mmol/L (3.3-5.1); Sodium 139 mmol/L (135-145); Total Protein 7.7 g/dL (6.5-8.0)
[2024-07-19 07:51] VITALS: BP 129/71; PULSE 63; RESP 17; TEMP 37.5; O2SAT 95
[2024-07-19] MEDS: Albuterol/Iprat 2.5/0.5MG 3 ML AMPUL.NEB INHALE (07:59)
[2024-07-19 08:02] VITALS: PULSE 73; RESP 16; O2SAT 95
--- NOTE | 2024-07-19 08:32 | MHC.CM.PN ---
Addendum entered by Indigo Veliz RN 07/19/24 13:00: Patient now agreeable to detox @ [facility]. Detox staff will provide transport at 2pm. Primary RN, attendant [facility], and patient aware. Addendum entered by Indigo Veliz RN 07/19/24 10:57: Per MD rounds patient medically cleared for dc home self care. CM discussed detox referral with patient who says he does not plan on going to [facility] today and will follow up outpatient. lighting fixtures decorator aware. Mother is at bedside to transport. RN aware. Original Note: Per lighting fixtures decorator referral packet was sent to [facility] detox. Goal is dc to detox.
[2024-07-19] MEDS: Venlafaxine HCl ER 75 MG CAP.ER.24H 225 MG PO (09:00)
[2024-07-19] MEDS: Dextroamphetamine/Amphetamine XR 10 MG CAP.ER.24H 30 MG PO (09:01)
[2024-07-19] MEDS: Azithromycin 500 MG in 0.9 % Sodium Chloride 250 ML 125 MG IV (09:05)
[2024-07-19] MEDS: Enoxaparin Sodium 40 MG/0.4 ML SYRINGE SUBCUT (09:06)
[2024-07-19] MEDS: methylPREDNISolone Sod Succ 40 MG/ML VIAL IVPUSH (10:22)
[2024-07-19] MEDS: cefTRIAXone sodium 2 GM VIAL IVPUSH (11:06)
[2024-07-19] MEDS: Amphetamine Mixed Salts 10 MG TABLET PO (11:27)
--- NOTE | 2024-07-19 11:45 | P.DS_ITS ---
DS: Providers Provider Date of Service: 07/19/24 Date of admission: 07/16/24 09:12 Date of discharge: 07/19/24 Primary care physician: Antony Hinojosa MD Consults: 07/17/24 13:29 Addiction Medicine Routine Consulting Provider: Addiction Covering Reason for consultation: poly substance abuse DS: Diagnosis Discharge Diagnosis (1) Acute hypoxemic respiratory failure: Status: Acute (2) Acute encephalopathy: Status: Acute (3) Aspiration pneumonia: Status: Acute DS: Summary Hospital Course Hospital Course: Admission note HPI 38-year-old male with no significant past medical history, his home medications include only Xanax with remote history of drug abuse was apparently normal last night when he went to bed. This morning his noted that he has struggled breathing, when she turned on the light he was purple in color and severely dyspneic. She gave him a dose of intranasal Narcan and called EMS. He was brought into the ED, received another dose of Narcan after which he became very restless but a little bit more awake, later the ED physician thought he was withdrawing from opioids so received a dose of fentanyl following which he is resting comfortably. He has significant shortness of breath for which he is on 100% oxygen on high-flow along with non-rebreather so MICU was consulted for admission. Hospital course The patient was admitted to the hospital for: # Acute toxic metabolic encephalopathy due to drugs and aspiration at time of presentation as UDS positive for amphetamines, benzos, cocaine and marijuana. CT of the head with no acute abnormalities. improved back to baseline with supportive measures in ICU. addiction team evaluated the patient and recommended outpatient resources as he did disclose his abuse details. restarted home dose Adderal while inpatient with no reported concerns. Will be discahrged home on his regular meds. advised to avoid any drugs and to follow with PCP and recovery team. # Acute hypoxemic respiratory failure due to aspiration pneumonia likely during his altered mentation time. CTA of the chest showing infiltrates bilaterally treated with On ceftriaxone and Azithromycin for aspiration pneumonia and Steroids and nebs added for likely pneumonitis as he was weaned O2 down as tolerated to room air and was able to maintain O2 sat in 90s% on room air. will be discharged on Prednisone, Azithromycin and Ceftin for 5 more days. Discharge plan We advise you complete abstinence from drugs Take your home medications with moderations and as prescribed Continue Antibiotics and Steroids for 5 more days Follow with recovery team and resources outpatient Time Attestation Discharge Coordination Time (in mins): 42 Quality: Safe Use of Opioids Does Pt have an Active Cancer Diagnosis on the Problem List?: No Quality: Stroke Does the patient have a stroke diagnosis?: No Physical Exam Vital Signs: Vital Signs: Last Vital Signs Temp 99.5 F 07/19/24 07:51 Pulse 73 07/19/24 08:02 Resp 16 07/19/24 08:02 BP 129/71 07/19/24 07:51 Pulse Ox 95 07/19/24 07:51 O2 Del Method Nasal Cannula 07/19/24 07:51 O2 Flow Rate 4 07/19/24 07:51 FiO2 60 07/17/24 11:00 Oxygen Flow Rate 2 07/16/24 07:38 BMI result Body Mass Index 34.4 Const: Other: Constitutional : Awake, interactive, not in distress Neck : Normal inspection, Supple Cardiovascular : RRR, no JVP, no lower extremity edema Respiratory : good bilateral air entry, no significant crackles, no wheezes Gastrointestinal: soft, lax, Normal bowel sounds, Non tender Skin : Warm, Dry Neurological : Alert & oriented x3, No focal deficit DS: Data Data Completed and Pending Labs on day of discharge: Laboratory Results - last 24 hr 07/19/24 05:24 WBC 14.0 H RBC 5.29 Hgb 14.2 Hct 44.5 MCV 84.1 MCH 26.8 L MCHC 31.9 RDW 14.9 Plt Count 444 H D MPV 9.1 L Immature Gran % (Auto) 1.3 H Neut % (Auto) 88.7 H Lymph % (Auto) 7.4 L [place] % (Auto) 2.4 Eos % (Auto) 0.0 Baso % (Auto) 0.2 Lymph # (Auto) 1.0 L [place] # (Auto) 0.3 Eos # (Auto) 0.0 Baso # (Auto) 0.0 Abs Immat Gran (auto) 0.18 H Absolute Neuts (auto) 12.4 H Absolute Nucleated RBC 0.000 Nucleated RBC % (auto) 0.0 Sodium 139 Potassium 4.3 Chloride 106 Carbon Dioxide 23 Anion Gap 14 BUN 18 H Creatinine 0.80 Estim Creat Clear Calc 143.5 Estimated GFR > 60 Random Glucose 120 H Calcium 9.4 Total Bilirubin 0.3 AST 17 ALT 20 Alkaline Phosphatase 68 Total Protein 7.7 Albumin 4.0 Preliminary micro results at discharge 07/16/24 08:13 Blood Culture - Preliminary Blood - Venous No growth after 48 hours. 07/16/24 07:55 Blood Culture - Preliminary Blood - Venous No growth after [address] scan - chest: Radiologist's impression: ITS Impressions Chest X-Ray 07/16/24 07:50 IMPRESSION: Hypoexpanded lungs without consolidation. Suspect interstitial pneumonitis or edema. Electronically signed by: Cleveland Morse MD 07/16/2024 08:29 AM EST RP Chest CTA 07/16/24 09:54 IMPRESSION: Extensive consolidation in both lungs consistent with pneumonia. Follow-up is recommended. No definite evidence of pulmonary emboli. Electronically signed by: Gavino Edwards MD 07/16/2024 12:02 PM EST RP Head CT 07/16/24 10:29 IMPRESSION: No acute intracranial hemorrhage. Questionable hypodensity right parietal/pre and postcentral gyri versus artifact. If patient's symptoms persist recommend non-IV contrast MRI brain. Acute on chronic sinus disease, sphenoid sinus and anterior left nasal cavity. Electronically signed by: Eddie Cervantes MD 07/16/2024 11:24 AM EST RP Chest X-Ray 07/17/24 09:40 IMPRESSION: Hypoexpanded lungs with likely bilateral interstitial pneumonitis or edema. No change from 07/16/2024 Electronically signed by: Cleveland Morse MD 07/17/2024 10:46 AM EST RP Chest X-Ray 07/18/24 08:50 IMPRESSION: Low lung volumes. Diffuse patchy airspace opacities bilaterally which may represent pulmonary edema or diffuse pneumonia. Electronically signed by: Gavino Edwards MD 07/18/2024 11:37 AM EST RP Discharge Plan Discharge Anticipated Discharge Date/Time: 07/19/24 11:32 Patient Disposition: Home, Self-Care Discharge Diagnosis: Overdose, drug abuse Aspiration pneumonia Referrals: Antony Hinojosa MD [Primary Care Provider] - 1 Week Discharge Medications: New prednisone 20 mg tablet 40 mg PO DAILY Qty: 10 0RF azithromycin 500 mg tablet 500 mg PO DAILY 5 Days Qty: 5 0RF cefuroxime axetil 500 mg tablet 500 mg PO BID Qty: 10 0RF Continued dextroamphetamine-amphetamine 10 mg tablet 1 tab PO DAILY@1200 clonazepam 1 mg tablet 1 mg PO BEDTIME venlafaxine 225 mg tablet extended release 24hr 225 mg PO DAILY dextroamphetamine-amphetamine 30 mg capsule,extended release 24hr 1 cap PO DAILY Discharge Orders: Discharge Order (Routine); Ordered 07/19/24 Ordered By: Earline Luna Diet: Advance to usual diet Activity on Discharge: As tolerated Stand Alone Forms: Patient Portal Discharge page Print Language: Pakistani Care Plan Goals: We advise you complete abstinence from drugs Take your home medications with moderations and as prescribed Continue Antibiotics and Steroids for 5 more days Follow with recovery team and resources outpatient Health Concerns: Drug abuse and overdose Aspiration pneumonia Plan of Treatment: Antibiotics Steroids Recovery team Assessment: as above
--- NOTE | 2024-07-19 13:24 | MHC.RECOVRN ---
Spoke with intake at [facility]. Pt accepted and transportation booked. Transportation will call [facility] nurse's station to solidify transport time and to notify staff upon their arrival. CM aware.
[2024-07-19] MEDS: Acetaminophen 325 MG TABLET 650 MG PO (14:25)
== END 2024-07-19 16:39 | disposition home or self-care (01) | DRG 812 ==
LOC: HO.ED 09:05 → HO.EDOVER 09:13 → HO.ICU 09:21 → HO.S3 07-17 12:11
PROVIDERS: Admitting Provider Internal Medicine Critical Care Medicine; Emergency Provider Emergency Medicine Emergency Medical Services; PCP Family Medicine; Visit Provider Student in an Organized Health Care Education/Training Program
DX: T40.601A Poisoning by unspecified narcotics, accidental (unintentional), initial encounter (principal); J96.01 Acute respiratory failure with hypoxia; J69.0 Pneumonitis due to inhalation of food and vomit; G92.8 Other toxic encephalopathy; F17.210 Nicotine dependence, cigarettes, uncomplicated; Z71.6 Tobacco abuse counseling; Z20.822 Contact with and (suspected) exposure to COVID-19; Z79.899 Other long term (current) drug therapy
CPT/HCPCS: 0241U; 36415; 36600; 70450; 71045; 71275; 80053; 80307; 81001; 82803; 83605; 83735; 83880; 84100; 84443; 84484; 85007; 85025; 85027; 85610; 85730; 87040; 87640; 87641; 93005; 94640; 99285; C1758; J0456; J0696; J1650; J1940; J2470; J2543; J2919; J3010; Q9967; S9485

== ENCOUNTER → 2024-07-16 07:50 | Outpatient (BNV) | payer SELFPAY | PROVIDERS: Emergency Provider Emergency Medicine Emergency Medical Services; Visit Provider Radiology Diagnostic Radiology | DX: J98.19 Other pulmonary collapse (principal); J44.1 Chronic obstructive pulmonary disease with (acute) exacerbation; J18.9 Pneumonia, unspecified organism | CPT/HCPCS: 70450; 71045; 71275 ==

== ENCOUNTER → 2024-07-16 08:00 | Outpatient (BNV) | payer BC, SELFPAY | PROVIDERS: Admitting Provider Internal Medicine Critical Care Medicine; Emergency Provider Emergency Medicine Emergency Medical Services; PCP Family Medicine; Visit Provider Internal Medicine | DX: R00.0 Tachycardia, unspecified (principal) | CPT/HCPCS: 93010 ==

== ENCOUNTER 2024-07-16 09:12 | Outpatient (BNV) | payer BC, SELFPAY | END 2024-07-17 09:40 | PROVIDERS: Admitting Provider Internal Medicine Critical Care Medicine; Emergency Provider Emergency Medicine Emergency Medical Services; PCP Family Medicine; Visit Provider Radiology Diagnostic Radiology | DX: J69.8 Pneumonitis due to inhalation of other solids and liquids (principal) | CPT/HCPCS: 71045 ==

== ENCOUNTER 2024-07-16 09:12 | Outpatient (BNV) | payer BC, SELFPAY | END 2024-07-18 08:50 | PROVIDERS: Admitting Provider Internal Medicine Critical Care Medicine; Emergency Provider Emergency Medicine Emergency Medical Services; PCP Family Medicine; Visit Provider Radiology Diagnostic Radiology | DX: J98.9 Respiratory disorder, unspecified (principal); R09.02 Hypoxemia | CPT/HCPCS: 71045 ==

== ENCOUNTER → 2024-07-16 09:12 | Outpatient (BNV) | payer BC, SELFPAY | PROVIDERS: Admitting Provider Internal Medicine Critical Care Medicine; Emergency Provider Emergency Medicine Emergency Medical Services; PCP Family Medicine; Visit Provider Internal Medicine Critical Care Medicine | DX: J69.0 Pneumonitis due to inhalation of food and vomit (principal); J96.01 Acute respiratory failure with hypoxia; T40.601A Poisoning by unspecified narcotics, accidental (unintentional), initial encounter; T68.XXXA Hypothermia, initial encounter; G93.40 Encephalopathy, unspecified | CPT/HCPCS: 99223; 99291 ==

== ENCOUNTER → 2024-07-16 09:12 | Outpatient (BNV) | payer BC, SELFPAY | PROVIDERS: Admitting Provider Internal Medicine Critical Care Medicine; Emergency Provider Emergency Medicine Emergency Medical Services; PCP Family Medicine; Visit Provider Student in an Organized Health Care Education/Training Program | DX: J96.01 Acute respiratory failure with hypoxia (principal); G93.40 Encephalopathy, unspecified; J69.0 Pneumonitis due to inhalation of food and vomit | CPT/HCPCS: 99232; 99239 ==